=== PATIENT | male | born 1985 | race African-American/Black ===

== ENCOUNTER 2021-09-13 08:24 | Emergency (ER) | payer MEDICAID ==
[~2021-09-13] VITALS: Ht 190.5 cm; Wt 109.0 kg
[2021-09-13 08:26] VITALS: BP 143/97
[2021-09-13] MEDS ORDERED: ASPIRIN 325MG EC TABLET PO ONE (08:45)
[2021-09-13] MEDS ORDERED: MAGNESIUM/ALUMINUM HYDROXIDE/SIMETHICONE 30ML UDC PO STA (09:00)
[2021-09-13] MEDS ORDERED: ONDANSETRON HCL 4MG/2ML INJ IV ONE (09:00)
[2021-09-13] MEDS ORDERED: VISCOUS LIDOCAINE 2% 15 ML UDC PO STA (09:00)
[2021-09-13 09:10] LABS: BASOPHILS % 0.9 % (0.0-2.0); HEMATOCRIT. 41.4 % (42.0-52.0); HEMOGLOBIN. 13.9 g/dL (14.0-18.0); LYMPHOCYTES % 32.4 % (20.0-50.0); MEAN CORPUSCULAR HEMOGLOBIN 30.6 pg (28.0-32.0); MEAN CORPUSCULAR VOLUME 90.7 fL (80.0-94.0); MEAN PLATELET VOLUME 8.6 fl (7.4-10.4); NEUTROPHILS % 59.7 % (40.0-76.0); PLATELET 227 x1000/uL (130-400); RED BLOOD CELL COUNT 4.56 mill/uL (4.7-6.1); RED CELL DISTRIBUTION WIDTH 15.3 % (11.6-14.6)
[2021-09-13 09:17] LABS: CHLORIDE 110 mEq/L (98-107)
[2021-09-13 09:21] LABS: ETHANOL BLOOD < 10 mg/dL
== END 2021-09-13 10:20 | disposition home or self-care (01) ==
LOC: ER 08:24
DX: R10.13 Epigastric pain (principal); R06.02 Shortness of breath; R03.0 Elevated blood-pressure reading, without diagnosis of hypertension; J45.909 Unspecified asthma, uncomplicated
CPT/HCPCS: 36415; 71045; 80053; 80320; 83690; 83880; 84484; 85025; 96374; 99284; J2405; G0480